=== PATIENT | female | born 1965 | race Caucasian/White ===

== ENCOUNTER → 2018-01-12 | Outpatient (CLI) | payer BC ==
[~2018-01-12] MED LIST: Aspirin PO; SOMA350 MG PO; TOPAMAX25 MG PO; Tylenol # 4 PO
--- NOTE | 2018-01-20 08:21 | Diagnostic Imaging Report ---
#[id number] - MGSCRBIL #BILATERAL DIGITAL SCREENING MAMMOGRAM WITH CAD: 01/12/2018 CLINICAL: Routine screening. Comparison is made to exams dated: 12/28/2016 mammogram and 08/08/2015 mammogram - [facility]. Current study contains 4 films. The tissue of both breasts is heterogeneously dense. This may lower the sensitivity of mammography. Current study was also evaluated with a Computer Aided Detection (CAD) system. There is a benign calcification in the left breast. There is a mole marker on both breasts. No significant masses, calcifications, or other findings are seen in either breast. There has been no significant interval change. IMPRESSION: BENIGN There is no mammographic evidence of malignancy. A 1 year screening mammogram is recommended. The patient will be notified by letter of the results. Justen arreaga/tahira:01/19/2018 11:53:33 Assembled Wood Products Repairer: Kati SERRANO(Ashley)(M), [facility] letter sent: Compared to Prior B9 Mammogram BI-RADS: 2 Benign
== END ==
LOC: MAMMO 10:54
PROVIDERS: ATTEND Internal Medicine
DX: Z12.31 Encounter for screening mammogram for malignant neoplasm of breast (principal)
CPT/HCPCS: 77067

== ENCOUNTER → 2018-02-11 | Day surgery (SDC) | payer BC ==
[~2018-02-11] MED LIST changes: +FENTANYL CITRATE/PF 100MCG/2 ML INJ ONE; +HYOSCYAMINE SULFATE 0.5 MG/ML INJ ONE; +MIDAZOLAM HCL 2 MG/2 ML VIAL ONE; +PROPOFOL IV EMULSION 10 MG/ML 50 ML VIAL ONE
--- OUTSIDE RECORDS SUMMARY | 2018-02-11 06:35 | XMS REPORT ---
[facility] Address Unknown Phone Unavailable Care Team Providers Care Cigarette Seller Name Role Phone MIGUEL TIJERINA Unavailable Unavailable Problems This patient has no known problems. Allergies, Adverse Reactions, Alerts This patient has no known allergies or adverse reactions. Medications This patient has no known medications. Results Test Description Test Time Test Comments Text Results Atomic Results Result Comments MAMMOGRAPHY DIGITAL SCR BILAT 2018-01-12 11:45:00 [place] [address] Patient Name: JOHNNIE EPSTEIN MR #: [id number] : 1965 Age/Sex: 52/F Req #: [id number] [facility] Physician: Ordered by: MIGUEL TIJERINA MD Report #: [id number] Location: MAMMO Room/Bed: Procedure: [id number] MG/MAMMOGRAPHY DIGITAL SCR BILAT Exam Date: 01/12/18 Exam Time: 1100 REPORT STATUS: Signed #[id number] - MGSCRBIL #BILATERAL DIGITAL SCREENING MAMMOGRAM WITH CAD: 01/12/2018 CLINICAL: Routine screening. Comparison is made to exams dated: 12/28/2016 mammogram and 08/08/2015 mammogram - [facility]. Current study contains 4 films. The tissue of both breasts is heterogeneously dense. This may lower the sensitivity of mammography. Current study was also evaluated with a Computer Aided Detection (CAD) system. There is a benign calcification in the left breast. There is a mole marker on both breasts. No significant masses, calcifications, or other findings are seen in either breast. There has been no significant interval change. IMPRESSION: BENIGN There is no mammographic evidence of malignancy. A 1 year screening mammogram is recommended. The patient will be notified by letter of the results. Marium arreaga/leigh ann:01/19/2018 11:53:33 Base Filler: Kati Rob RT(R)(M), [facility] letter sent: Compared to Prior B9 Mammogram BI-RADS: 2 Benign Dictated By: MARIUM NEWELL DO 1153 Transcribed By: LEIGH ANN on 01/19/18 1153 COPY TO: MIGUEL TIJERINA MD MAMMOGRAPHY DIGITAL SCR BILAT [place] [address] Patient Name: JOHNNIE EPSTEIN MR #: [id number] : 1965 Age/Sex: 51/F Req #: [id number] [facility] Physician: Ordered by: MIGUEL TIJERINA MD Report #: [id number] Location: MAMMO Room/Bed: Procedure: [id number] MG/MAMMOGRAPHY DIGITAL SCR BILAT Exam Date: 12/28/16 Exam Time: 1000 REPORT STATUS: Signed #[id number] - MGSCRBIL #BILATERAL DIGITAL SCREENING MAMMOGRAM WITH CAD: 12/28/2016 CLINICAL: Routine screening. Comparison is made to exams dated: 08/08/2015 mammogram - [facility] and 06/23/2011 mammogram - [facility]. Current study contains 4 films. The tissue of both breasts is heterogeneously dense. This may lower the sensitivity of mammography. Current study was also evaluated with a Computer Aided Detection (CAD) system. There is a benign calcification in the left breast. No significant masses, calcifications, or other findings are seen in either breast. There has been no significant interval change. IMPRESSION: BENIGN There is no mammographic evidence of malignancy. A 1 year screening mammogram is recommended. The patient will be notified by logan gavin of the results. Marium arreaga/leigh ann:01/01/2017 13:18:08 Base Filler: Kati CONRAD)(Juan), [facility] letter sent: Compared to Prior B9 Mammogram BI-RADS: 2 Benign Dictated By: MARIUM NEWELL DO 1318 Transcribed By: LEIGH ANN on 01/01/17 1318 COPY TO: MIGUEL TIJERINA MD
[2018-02-11 10:30] VITALS: BP 140/89
--- NOTE | 2018-02-11 14:05 | Operative Report ---
DATE OF PROCEDURE: February 11, 2018 REFERRING PHYSICIAN: Dr. Clint Tijerina PROCEDURE PERFORMED: Colonoscopy and polypectomy. INDICATIONS FOR COLONOSCOPY: Colorectal cancer screening. MEDICATION: Patient was done under MAC. Please see anesthesiologist's note. PROCEDURE: With the patient in the left lateral decubitus position, the flexible fiberoptic Olympus colonoscope was inserted into the rectum with ease and advanced all the way to the cecum. An approximately 5-mm polyp was snared from the cecum and that site was hemoclipped. The scope was then withdrawn slowly, and the ascending, transverse, descending, sigmoid, and rectum appeared to be within normal limits. There was a minute submucosal lesion suspicious for lipoma that was minimally biopsied, but it turned out to be potentially a vein and bled transiently, and that site was hemoclipped. That was in the descending colon. The scope was then retroflexed into the distal rectum and small internal hemorrhoids were noted, none of which was actively bleeding. The scope was then straightened out. It was subsequently withdrawn. Patient tolerated the procedure well. IMPRESSION 1. Cecal polyp, snared, site hemoclipped. 2. Minute submucosal lesion, possibly a vessel, biopsied minimally and it bled transiently, and that site was hemoclipped with excellent hemostasis. 3. Internal hemorrhoids, none actively bleeding. PLAN: Follow up histology. Initiate high-fiber and low-fat diet. Initiate high-fiber supplement. Patient will need a followup colonoscopy in 3-5 years. Job#: [id number] [place] cc:CLINT TIJERINA M.D.
== END | disposition home or self-care (01) ==
LOC: OR 06:33
PROVIDERS: ATTEND Internal Medicine Gastroenterology
DX: Z12.11 Encounter for screening for malignant neoplasm of colon (principal); K63.5 Polyp of colon; K63.9 Disease of intestine, unspecified; K64.8 Other hemorrhoids; M54.89 Other dorsalgia; F17.210 Nicotine dependence, cigarettes, uncomplicated; Z88.8 Allergy status to other drugs, medicaments and biological substances; Z01.810 Encounter for preprocedural cardiovascular examination; Z79.82 Long term (current) use of aspirin; Z86.718 Personal history of other venous thrombosis and embolism
CPT/HCPCS: 45380; 45385; 93005; J1980; J2250; 44391

== ENCOUNTER 2019-04-02 08:47 | Observation (INO) | payer BC ==
[~2019-04-02] VITALS: Ht 167.6 cm; Wt 64.6 kg
[~2019-04-02 08:47] MED LIST changes: -FENTANYL CITRATE/PF 100MCG/2 ML INJ ONE; -HYOSCYAMINE SULFATE 0.5 MG/ML INJ ONE; -MIDAZOLAM HCL 2 MG/2 ML VIAL ONE; -PROPOFOL IV EMULSION 10 MG/ML 50 ML VIAL ONE
[2019-04-02] MEDS ORDERED: NITROGLYCERIN 2% OINT 1 GM PKT TOP ONE (09:00)
[2019-04-02] MEDS ORDERED: ONDANSETRON HCL INJ 2MG/ML 2ML 2 MG/ML VIAL IV PRN (09:00)
[2019-04-02 09:19] LABS: BASOPHILS # (AUTO) 0.1 (0.0-0.1); BASOPHILS % 1.7 % (0.0-1.0); EOSINOPHILS # (AUTO) 0.1 (0.0-0.4); EOSINOPHILS % 2.2 % (0.0-6.0); HEMATOCRIT 41.7 % (34.2-44.1); LYMPHOCYTES # (AUTO) 1.8 (1.0-3.2); LYMPHOCYTES % 38.2 % (18.0-39.1); MEAN CORPUSCULAR HEMOGLOBIN 33.1 pg (28-32); MEAN CORPUSCULAR HGB CONC 33.6 g/dL (31-35); MEAN CORPUSCULAR VOLUME 98.6 fL (81-99); MONOCYTES # (AUTO) 0.4 (0.2-0.8); MONOCYTES % 7.6 % (4.4-11.3); NEUTROPHILS # (AUTO) 2.3 (2.1-6.9); NEUTROPHILS % 49.9 % (38.7-80.0); PLATELET COUNT 254 x10e3/uL (140-360); RED BLOOD COUNT 4.23 x10e6/uL (3.6-5.1); RED CELL DISTRIBUTION WIDTH 12.4 % (11.7-14.4)
[2019-04-02 09:30] LABS: ALANINE AMINOTRANSFERASE 18 IU/L (0-55); ALBUMIN 4.6 g/dL (3.5-5.0); ALBUMIN/GLOBULIN RATIO 1.6 (0.8-2.0); ALKALINE PHOSPHATASE 69 IU/L (40-150); ANION GAP 14.9 mmol/L (8-16); BLOOD UREA NITROGEN 12 mg/dL (7-26); BUN/CREATININE RATIO 15 (6-25); CALCIUM 9.5 mg/dL (8.4-10.2); CARBON DIOXIDE 22 mmol/L (22-29); CHLORIDE 105 mmol/L (98-107); CREATININE, SERUM 0.81 mg/dL (0.57-1.11); EST GLOMERULAR FILTRATION RATE > 60 ML/MIN (60-); GLUCOSE 86 mg/dL (74-118); POTASSIUM 3.9 mmol/L (3.5-5.1); SODIUM 138 mmol/L (136-145)
[2019-04-02] MEDS ORDERED: ASPIRIN 81 MG CHEW TAB PO ONE (09:30)
[2019-04-02] MEDS ORDERED: ACETAMINOPHEN 325 MG TAB PO ONE (09:30)
[2019-04-02] MEDS ORDERED: FAMOTIDINE 20 MG/2 ML VIAL IV ONE (09:30)
[2019-04-02 09:36] LABS: AMYLASE 51 U/L (25-125); LIPASE 13 U/L (8-78)
--- NOTE | 2019-04-02 09:39 | Diagnostic Imaging Report ---
EXAMINATION: CHEST SINGLE (PORTABLE) INDICATION: Chest pain, look for CHF, enlarge Mediastinum ^[id number] ^0900 COMPARISON: None FINDINGS: TUBES and LINES: None. LUNGS: Lungs are well inflated. Lungs are clear. There is no evidence of pneumonia or pulmonary edema. PLEURA: No pleural effusion or pneumothorax. HEART AND MEDIASTINUM: The cardiomediastinal silhouette is unremarkable. BONES AND SOFT TISSUES: No acute osseous lesion. Approximately 2.7 cm pleural-based density in the mid lateral right hemithorax may represent a mass versus a remote healed fracture. UPPER ABDOMEN: No free air under the diaphragm. IMPRESSION: No acute thoracic abnormality. Approximately 2.7 cm pleural-based density in the mid lateral right hemithorax may represent a mass versus a remote healed fracture. Consider further evaluation with nonemergent CT chest. Signed by: Dr. Kathi Pulliam M.D. on 04/02/2019 9:37 AM
[2019-04-02] MEDS ORDERED: PROMETHAZINE 25MG/ NS 50ML (IV) IV ONE (11:45)
[2019-04-02] MEDS ORDERED: PROMETHAZINE 25MG/SOD CHL 0.9% 50 ML ONE (11:46)
[2019-04-02 12:02] LABS: CREATINE KINASE 118 IU/L (29-168)
[2019-04-02] MEDS ORDERED: DIPHENHYDRAMINE HCL 25 MG CAP PO PRN (12:15)
[2019-04-02] MEDS ORDERED: SODIUM CHLORIDE FLUSH 10 ML SYR INJ PRN (12:15)
[2019-04-02] MEDS ORDERED: PROMETHAZINE 25MG/ NS 50ML (IV) IV PRN (12:15)
[2019-04-02] MEDS ORDERED: ENALAPRILAT IV INJ 1.25 MG/ML VIAL IV PRN (12:15)
[2019-04-02] MEDS ORDERED: CLONIDINE HCL 0.1 MG TAB PO PRN (12:15)
[2019-04-02] MEDS ORDERED: MORPHINE SULFATE 2 MG/ML SYR 1ML IV PRN (12:15)
[2019-04-02] MEDS ORDERED: FAMOTIDINE 20 MG/2 ML VIAL IV SCH (12:15)
[2019-04-02] MEDS ORDERED: ACETAMINOPHEN 325 MG TAB PO PRN (12:15)
[2019-04-02] MEDS ORDERED: ZOLPIDEM TARTRATE 5 MG TAB PO PRN (12:15)
[2019-04-02 14:10] VITALS: BP 97/58
[2019-04-02] MEDS: HYDROCODONE/APAP 7.5MG-325MG 1 EA TAB PO PRN ×2 (15:30→22:09)
[2019-04-02 15:49] LABS: CREATINE KINASE 90 IU/L (29-168)
[2019-04-02 16:29] VITALS: BP 100/62
[2019-04-02] MEDS ORDERED: SODIUM CHLORIDE 0.9% 250ML 250 ML ONE (16:37)
[2019-04-02] MEDS ORDERED: PANTOPRAZOLE 40 MG 10ML VIAL IV STA (17:04)
[2019-04-02 17:52] VITALS: BP 100/62
--- NOTE | 2019-04-02 19:21 | NUR ---
report to on coming nurse walking rounds complete.
--- NOTE | 2019-04-02 19:30 | NUR ---
Received the patient in report.aaox3.assessment done.no resp.distress.no chest pain.bed locked and in lowest position.phone and call light within reach.instructed to call for assistance as needed.
[2019-04-02 20:16] VITALS: BP 111/51
[2019-04-02 20:25] VITALS: BP 111/51
[2019-04-02 20:30] LABS: CREATINE KINASE 77 IU/L (29-168)
[2019-04-02] MEDS ORDERED: SIMVASTATIN 40 MG TAB PO SCH (21:00)
[2019-04-02] MEDS ORDERED: IOPAMIDOL 370 MG/ML 200 ML INFUS..BTL INJ ONE (21:24)
[2019-04-02] MEDS ORDERED: SODIUM CHLORIDE 0.9% 50ML 50 ML ONE (21:25)
--- NOTE | 2019-04-02 22:13 | History and Physical ---
CHIEF COMPLAINT: Chest pain since yesterday morning. HISTORY OF PRESENT MEDICAL ILLNESS: A 53-year-old pleasant white female with past medical history of multiple medical problems, was admitted at [facility] with above complaints. As per the patient, she has recently a lot of family stressful situations including her [id number] admitted to the hospital about one week back and then her son went to [facility] a couple of days back and hence she has been under a lot of stress and the patient noticed since yesterday morning, she was having chest tightness, pressure, pain in the middle of the chest, continuous, occasionally radiating to neck and hence the patient came to the ER today. In the emergency room, the patient was seen by emergency room doctor. The patient was given nitroglycerin patch and after that symptoms got a little better. At present, the patient is lying comfortably in bed, in no apparent distress. No chest pain at present. No shortness of breath. No nausea, vomiting, or diarrhea. No abdominal pain. No loss of consciousness. No palpitations. No headaches. No hematemesis. No melena. No hematuria or dysuria. No fever. No cough. No witnessed seizures. PAST MEDICAL HISTORY: 1. Migraine headache. 2. Depression. 3. Chronic neck pain. SLEEVER: [facility], Dr. Duran. MEDICATIONS: 1. Tylenol with codeine #4, one tab p.o. q.6 hours p.r.n. 2. Soma 350 mg p.o. b.i.d. 3. Topamax 25 mg p.o. b.i.d. 4. Vitamin D 80443 units p.o. every weekly. 5. Aspirin 81 mg p.o. daily. SURGICAL HISTORY: 1. x2. 2. Hysterectomy. SOCIAL HISTORY: No alcohol. No illicit drug use. Smoking 6 to 10 cigarettes per day. FAMILY HISTORY: Father diagnosed with heart disease. Mother diagnosed with heart disease. REVIEW OF SYSTEMS: As per HPI. ALLERGIES: WELLBUTRIN. PHYSICAL EXAMINATION: GENERAL: The patient is alert, awake, and oriented x3, in no apparent distress, lying in bed. VITAL SIGNS: Temperature is 97, pulse is 70 per minute, respiratory rate 18 per minute, blood pressure is 114/72, and saturation is 98%. SKIN: No cyanosis. No icterus. No pallor. HEENT: Normocephalic and atraumatic. PERRLA plus. NECK: Soft, supple. No JVD. No carotid bruit. No lymphadenopathy. LUNGS: Air entry bilaterally equal. HEART: S1, S2. No murmur, gallop, or rub. ABDOMEN: Soft and nontender. Bowel sounds plus. RUG CLEANER: Alert, awake, and oriented x3. No focal deficit. EXTREMITIES: No cyanosis. No clubbing. No edema. Peripheral pulses present. No calf pain. LABORATORY DATA: Labs on admission to the ER, white count 4.6, hemoglobin 14, hematocrit 41.7, platelets 254. Sodium 138, potassium 3.9, chloride 105, bicarb 22. BUN 12, creatinine 0.8, glucose 86. LFTs noted. Cardiac enzymes x1 negative. D-dimer 0.38. EKG shows normal sinus rhythm, no acute ST-T changes. Chest x-ray shows no acute thoracic abnormality, approximately 2.7 cm pleural-based density in mid-lateral right hemithorax, may represent a mass versus a remote healed fracture. ASSESSMENT: 1. Chest pain. 2. History of chronic back pain, chronic migraine headaches. PLAN: Admit the patient to [facility]. Serial cardiac enzymes. 2D echo. Cardiology consultation Dr. King. We will get CT of chest for possible lung mass on chest x-ray. DVT and stress prophylaxis. Discussed with the patient in detail. Further care and treatment as per clinical course of the patient in the hospital. MD BRUCE Haas/YURY /[id number]
[2019-04-03 00:15] VITALS: BP 119/52
[2019-04-03 04:54] VITALS: BP 124/57
[2019-04-03] MEDS: HYDROCODONE/APAP 7.5MG-325MG 1 EA TAB PO PRN ×2 (05:42→13:20)
[2019-04-03 06:09] LABS: CREATINE KINASE 75 IU/L (29-168)
[2019-04-03 06:10] LABS: CHOL/HDL RATIO 3.3 (3.0-3.6)
--- NOTE | 2019-04-03 07:00 | NUR ---
Bed side shift report given to oncoming RN.stable condition.
--- NOTE | 2019-04-03 07:10 | NUR ---
RCD PT AT BED PT IS ALERT AND ORIENTED PT RESTING ON BED IV PATENT BY SALINE FLUSH BED LOW AND LOCKED CALL LIGHT IN REACH
[2019-04-03] MEDS ORDERED: PANTOPRAZOLE SOD 40 MG TABEC PO SCH (07:30)
--- NOTE | 2019-04-03 07:31 | Diagnostic Imaging Report ---
EXAM: CT Chest WITH contrast 04/02/2019 3:04 PM INDICATION: Lung mass right side COMPARISON: Chest x-ray 04/02/2019 TECHNIQUE: Chest was scanned utilizing a multidetector helical scanner from the lung apex through the level of the adrenal glands with administration of IV contrast. Coronal and sagittal reformations were obtained. Routine protocol was performed. IV CONTRAST: 100 mL of Isovue 370 COMPLICATIONS: None RADIATION DOSE: Total DLP: 410 mGy*cm Estimated effective dose: (DLP x 0.014 x size factor) mSv CTDIvol has been reviewed. It is below the limits set by the Radiation Protocol Committee (RPC). Dose modulation, iterative reconstruction, and/or weight based adjustment of the mA/kV was utilized to reduce the radiation dose to as low as reasonably achievable. FINDINGS: LINES/ TUBES: None. LUNGS AND AIRWAYS: A 7 mm benign right upper lobe calcified granuloma, otherwise lungs are unremarkable. Airways are normal. PLEURA: The pleural spaces are clear. HEART AND MEDIASTINUM: The thyroid gland is normal. No mediastinal, hilar or axillary lymphadenopathy. The heart is normal in size. There is no pericardial effusion. UPPER ABDOMEN: Calcified splenic granulomata. BONES: The opacity seen on chest x-ray is a right rib 5 bifid deformity. SOFT TISSUES: Unremarkable. IMPRESSION: The opacity seen on chest x-ray is a right rib 5 benign bifid deformity. No suspicious thoracic masses identified. No acute thoracic CT abnormality. Signed by: Alfredo Hall DO on 04/03/2019 7:29 AM
[2019-04-03 08:00] VITALS: BP 120/74
--- NOTE | 2019-04-03 08:00 | NUR ---
PAGED [address] BUTLER TO NOTIFY THE CONSULTATION BUT NOT ANSWERING
[2019-04-03 08:40] VITALS: BP 120/74
[2019-04-03] MEDS ORDERED: ASPIRIN 325 MG TAB EC PO SCH (09:00)
[2019-04-03] MEDS ORDERED: LISINOPRIL 10 MG TAB PO SCH (09:00)
--- NOTE | 2019-04-03 11:00 | NUR ---
DR BUTLER RETURNED THE CALL HE SAID SOME ONE COMING
[2019-04-03 12:00] VITALS: BP 124/71
[2019-04-03] MEDS ORDERED: ONDANSETRON HCL 4 MG ORAL DISINTEGRATING TAB PO PRN (13:15)
--- NOTE | 2019-04-03 14:00 | NUR ---
DR THOMPSON CAME TO SEE THE PT HE IS OK TO DISCHARGE THE PT
--- NOTE | 2019-04-03 14:30 | NUR ---
PT WENT HOME IN SAFE CONDITION WITH HER
--- NOTE | 2019-04-03 23:15 | Consultation ---
DATE OF CONSULTATION: 04/03/2019 Cardiology Consultation Note REASON FOR CONSULT: Chest pain. CHIEF COMPLAINT: Chest pain. HISTORY OF PRESENT ILLNESS: The patient is a 53-year-old female with no prior history of heart problems, history of hypertension, hyperlipidemia, smoking and GERD, who presents with a burning substernal chest pain 1 hour after eating [employer]. She says usually her heartburn subsides after about an hour without any intervention. However, at this time around it has continued and then worsened into a sharp pain in the middle of her chest. She was concerned given her family history of CAD and smoking history, so she presented to the ER. She was given some IV Pepcid and she said that made it feel a lot better. Denies any exertional symptoms, shortness of breath or diaphoresis. Currently, she says she is completely chest pain free and walking without any issues. REVIEW OF SYSTEMS: As above otherwise negative. PAST MEDICAL HISTORY: As described in the HPI. SOCIAL HISTORY: The patient is a current smoker. Does not drink or abuse drugs. FAMILY HISTORY: History of early CAD in brother. OUTPATIENT MEDICATIONS: Reviewed. ALLERGIES: ALLERGIC TO BUPROPION. OBJECTIVE: VITAL SIGNS: Temperature afebrile, pulse 55, respiratory rate 16, blood pressure 124/71, and saturating 97% on room air. GENERAL: Middle-aged female, well developed, well nourished, in no acute distress. CARDIOVASCULAR: Regular rate and rhythm. No murmurs, rubs, or gallops. LUNGS: Clear to auscultation bilaterally. ABDOMEN: Soft, nontender, nondistended. NEURO AND PSYCH: Alert and oriented to person, place, and time. Normal affect. INPATIENT MEDICATIONS: Reviewed. LABORATORY DATA: Reviewed. Notable for troponin negative x4. LDL is 56. IMAGING DATA: Reviewed. CT of the chest shows no acute abnormality. No coronary calcification. TELEMETRY DATA: Shows normal sinus rhythm with occasional sinus bradycardia. EKG reviewed and shows normal sinus rhythm without any ST-T changes suggestive of ischemia. Echocardiogram reviewed, shows normal LV function. ASSESSMENT AND PLAN: Chest pain, likely secondary to heartburn. However, she will be risk stratified further as an outpatient. This was discussed with the patient and she will undergo outpatient stress testing at Dr. Estela Ford's office scheduled in the next couple of weeks. In the meantime, she was instructed to avoid any severe physical exertion and return to the ER if the chest pain refers. The patient was advised to take a baby aspirin every day. Again, beta blockers were given for bradycardia. Okay to be discharged with outpatient followup. Thank you for this consult. We will continue to follow. MD LILLIAN Álvarez/YURY /[id number]
== END 2019-04-03 14:38 | disposition home or self-care (01) ==
LOC: ER 08:47 → ERHOLD 12:02 → MED/SURG2 13:52
PROVIDERS: ADMIT Internal Medicine; ATTEND Internal Medicine
DX: K21.9 Gastro-esophageal reflux disease without esophagitis (principal); E78.5 Hyperlipidemia, unspecified; I10 Essential (primary) hypertension; Z87.891 Personal history of nicotine dependence; R12 Heartburn
CPT/HCPCS: 36415 ×2; 71045; 71260; 80053; 80061; 82150; 82550 ×2; 82553 ×2; 83690; 84484 ×2; 85025; 85379; 93005; 93306; 99284; C9113; G0378 ×2; J2270; J2405; J2550; J7050; Q9967; S0164